=== PATIENT | female | born 1960 | race Caucasian/White ===

== ENCOUNTER 2023-12-23 19:36 | Emergency (ER) | payer MEDICAID ==
[~2023-12-23] VITALS: Ht 167.6 cm; Wt 82.6 kg
[2023-12-23 19:45] VITALS: BP 121/66; PULSE 72; RESP 16; TEMP 97.9; O2SAT 99
[2023-12-23 22:00] VITALS: BP 120/66; PULSE 70; RESP 16; TEMP 97.9
[2023-12-23 22:01] VITALS: O2SAT 98
== END 2023-12-23 22:28 | disposition home or self-care (01) ==
LOC: EDSEX 19:36 → MED 19:36
DX: M85.89 Other specified disorders of bone density and structure, multiple sites (principal); Z79.899 Other long term (current) drug therapy
CPT/HCPCS: 99281